=== PATIENT | male | born 1975 | race Caucasian/White ===

== ENCOUNTER → 2018-02-02 | Outpatient (CLI) | payer OTHER ==
[~2018-02-02] VITALS: Ht 162.6 cm; Wt 82.1 kg
[~2018-02-02] MED LIST: B-CO1CAP17 PO; CHOL100010 PO; POTASSIUM OTC PO; RIVA1TAB4 PO; TRIA0.1C20 TOP; ZINC1TAB PO
[2018-02-02 15:35] VITALS: BP 130/83; PULSE 66; Ht 162.6 cm; Wt 82.1 kg
== END | disposition home or self-care (01) ==
LOC: C.NEUR 14:59
PROVIDERS: ATTEND Physician Assistant
DX: G47.30 Sleep apnea, unspecified (principal); J30.9 Allergic rhinitis, unspecified